=== PATIENT | male | born 1980 | race Caucasian/White ===

== ENCOUNTER 2016-11-17 22:12 | Emergency (ER) | payer OTHER ==
--- NOTE | 2016-11-18 | ED ORDER SUMMARY ---
..... Patient: GHADA AMIN OrderSheet [facility] VisitID: [id number] [place] [address] 36y, M Registration Date/Time: 11/17/2016 ORDER SHEET Weight: 99.7 kg (stated) Allergies: No Known Drug Allergy GENERAL ORDERS: Knee 4V Right Urgent (23:01 11/17/2016 Constance Mooney) (Ack 23:02 AMcQuoid ER Tech1) (23:43 RFay) Ice (23:01 11/17/2016 Constance Mooney) (Ack 23:02 AMcQuoid ER Tech1) (23:07 HSoule) MEDICATION ORDERS: Flwntxv-Lfqbwk-Qmhkp Pertussis IM 0.5 mL (NOW, per protocol) (23:56 11/17/2016 Constance Mooney) (Ack 23:57 HSoule) (0:04 HSoule) IV FLUIDS: ORDER SHEET NOTES: [Electronically signed by Yesenia Jin (00:21 11/18/2016)] [Electronically signed by Jorge Weber Dr. (11:34 11/22/2016)] [Electronically locked/signed by Yesenia Jin (00:11/18/2016)]
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
--- NOTE | 2016-11-18 | ED ORDER SUMMARY ---
..... Patient: GHADA AMIN OrderSheet [facility] VisitID: [id number] [place] [address] 36y, M Registration Date/Time: 11/17/2016 ORDER SHEET Weight: 99.7 kg (stated) Allergies: No Known Drug Allergy GENERAL ORDERS: Knee 4V Right Urgent (23:01 11/17/2016 Constance Mooney) (Ack 23:02 AMcQuoid ER Tech1) (23:43 RFay) Ice (23:01 11/17/2016 Constance Mooney) (Ack 23:02 AMcQuoid ER Tech1) (23:07 HSoule) MEDICATION ORDERS: Eibbbzi-Thqoqa-Dwkfy Pertussis IM 0.5 mL (NOW, per protocol) (23:56 11/17/2016 Constance Mooney) (Ack 23:57 HSoule) (0:04 HSoule) IV FLUIDS: ORDER SHEET NOTES: [Electronically signed by Yesenia Jin (00:21 11/18/2016)] [Electronically signed by Jorge Weber Dr. (11:34 11/22/2016)] [Electronically locked/signed by Yesenia Jin (00:11/18/2016)]
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
--- NOTE | 2016-11-18 00:23 | DIAGNOSTIC IMAGING REPORT ---
PROCEDURE: XR KNEE 4 VIEWS - RIGHT INDICATION: TRAUMA/INJURY TECHNIQUE: Four views. COMPARISON: None. FINDINGS: Bipartite patella. No fracture or dislocation. Normal joint spaces. No joint effusion. IMPRESSION: 1. Normal right knee.
--- NOTE | 2016-11-22 11:34 | ED MED RECONCILIATION SUMMARY ---
Patient: GHADA AMIN Medication Reconciliation Report [facility]erg[facility] VisitID: [id number] [address] [place] [address] 36y, M Registration Date/Time: 11/17/2016 Weight: 99.7 kg Height/Length: 71 in. BMI: 30.7 ALLERGIES: No Known Drug Allergy The patient's Home Medications are listed below: NONE. The source(s) of the original Home Medication information: patient The following Medications were given to the patient in the Emergency Department: JLLGDNN-QRHQDG-VBZSW PERTUSSIS [IM] IM 0.5 mL, administered: 11/18/2016 12:04:00 AM The following Medications were prescribed to the patient: Acetaminophen (available over the counter): take according to label instructions. -- Jorge Weber Dr. [place] (available over the counter): take according to label instructions. -- Jorge Weber Dr.
--- NOTE | 2016-11-22 11:34 | ED MAR SUMMARY ---
..... Medication Administration Record [address] [place] [address] Patient: GHADA AMIN Visit ID: [id number] 36y, M Weight: 99.7 kg Height/Length: 71 in BMI: 30.7 ALLERGIES: No Known Drug Allergy Given 00:04 11/18/2016 Yesenia Jin, Medication Administered: VAMKHNN-XSPUJX-NUTTO PERTUSSIS [IM], Dose: 0.5 mL IM. Medication Ordered: Brsiqmp-Qaelyu-Kkrqx Pertussis IM 0.5 mL (NOW, per protocol).
--- NOTE | 2016-11-22 11:34 | ED MED RECONCILIATION SUMMARY ---
Patient: GHADA AMIN Medication Reconciliation Report [facility] VisitID: [id number] [address] [place] [address] 36y, M Registration Date/Time: 11/17/2016 Weight: 99.7 kg Height/Length: 71 in. BMI: 30.7 ALLERGIES: No Known Drug Allergy The patient's Home Medications are listed below: NONE. The source(s) of the original Home Medication information: patient The following Medications were given to the patient in the Emergency Department: FIFZSGT-JPRXNW-ETPFZ PERTUSSIS [IM] IM 0.5 mL, administered: 11/18/2016 12:04:00 AM The following Medications were prescribed to the patient: Acetaminophen (available over the counter): take according to label instructions. -- Jorge Weber Dr. [place] (available over the counter): take according to label instructions. -- Jorge Weber Dr.
--- NOTE | 2016-11-22 11:34 | ED DISCHARGE INSTRUCTIONS ---
Patient: GHADA AMIN General Instructions [facility] VisitID: [id number] [place] [address] 36y, M Registration Date/Time: 11/17/2016 11/17/2016 23:22 BP: 100/60. HR: 90. RR: 20. O2 saturation: 95%. Blood pressure normal. Oxygen saturation normal. Multiple superficial abrasions to the right ankle and left knee. Sprain of the right medial collateral ligament. need for tetanus update. INSTRUCTIONS Warnings: GENERAL WARNINGS: Return or contact your physician immediately if your condition worsens or changes unexpectedly, if not improving as expected, or if other problems arise. Specifically return if pain, vomiting, bleeding, breathing difficulty or fever. Your Current Medications: CONTINUE TAKING THE FOLLOWING MEDICATIONS: None*. OTC Medications: Acetaminophen (available over the counter): take according to label instructions. Motrin (available over the counter): take according to label instructions. Follow-up: Return to the emergency department as needed. Follow up with your doctor in three days. Reason for referral: recheck today's concerns. Summary of care provided to patient via paper. Screening today revealed the patient's blood pressure to be in the normal range. The patient should follow up with a primary care provider for blood pressure management. Understanding of the discharge instructions verbalized by patient. ADDITIONAL INFORMATION Abrasions Abrasions are skin scrapes. Their treatment depends on how large and deep the abrasion is. Home Care: If you were given a bandage, change it once a day. If your bandage sticks to the wound, soak it in warm water until it loosens. Wash the area with soap and water to remove all the cream/ointment. You may do this in a sink, under a tub faucet or shower. Rinse off the soap and pat dry with a clean towel. Reapply cream/ointment according to your doctor's instructions. This will prevent infection and help prevent the bandage from sticking. Cover the wound with a fresh non-stick bandage (Telfa). Repeat steps 1 to 4 daily, or as directed by your doctor. If the bandage becomes wet or dirty, change it as soon as possible. You may use acetaminophen (Tylenol) or ibuprofen (Motrin, Advil) to control pain, unless another pain medicine was prescribed. [ NOTE : If you have chronic liver or kidney disease or ever had a stomach ulcer or GI bleeding, talk with your doctor before using these medicines.] Do not use ibuprofen in children under six months of age. Follow Up with your physician or this facility as directed by our staff. Most skin wounds heal within ten days. However, an infection may occur despite proper treatment. Therefore, look for the early signs of infection listed below. Get Prompt Medical Attention if any of the following occur: Increasing pain in the wound Increasing redness or swelling Pus coming from the wound Fever of 100.4F (38C) or higher, or as directed by your healthcare provider Sprain, Knee A sprain is an injury to the ligaments or capsule that holds a joint together. There are no broken bones. Most sprains take three to six weeks to heal. If the ligament is completely torn (severe sprain), it can take months to recover from. Most knee sprains are treated with a splint, knee immobilizer or elastic wrap for support. Severe sprains may require surgery. Home care The following guidelines will help you care for your injury at home: Stay off the injured leg as much as possible until you can walk on it without pain. If you have a lot of pain with walking, crutches or a walker may be prescribed. (These can be rented or purchased at many pharmacies and surgical or orthopedic supply stores). Follow your doctor's advice regarding when to begin bearing weight on that leg. Keep your leg elevated to reduce pain and swelling. When sleeping, place a pillow under the injured leg. When sitting, support the injured leg so it is level with your waist. This is very important during the first 48 hours. Apply an ice pack (ice cubes in a plastic bag, wrapped in a towel) over the injured area for 20 minutes every 12 hours the first day. You can place the ice pack directly over the splint. If a Velcro knee immobilizer was applied, you can open this to apply the ice pack directly to the knee. Continue with ice packs 34 times a day for the next two days, then as needed for the relief of pain and swelling. You may use acetaminophen or ibuprofen to control pain, unless another pain medicine was prescribed. If you have chronic liver or kidney disease or ever had a stomach ulcer or GI bleeding, talk with your doctor before using these medicines. If you were given a splint, keep it completely dry at all times. Bathe with your splint out of the water, protected with a large plastic bag, rubber-banded at the top end. If a fiberglass splint gets wet, you can dry it with a hair-dryer. If you have a Velcro knee immobilizer, you can remove this to bathe, unless told otherwise. Follow-up care Follow up with your doctor as advised. Any X-rays you had today dont show any broken bones, breaks, or fractures. Sometimes fractures dont show up on the first X-ray. Bruises and sprains can sometimes hurt as much as a fracture. These injuries can take time to heal completely. If your symptoms dont improve or they get worse, talk with your doctor. You may need a repeat X-ray. When to seek medical care Get prompt medical attention if any of the following occur: The plaster cast or splint becomes wet or soft The fiberglass cast or splint remains wet for more than 24 hours Pain or swelling increases Toes become cold, blue, numb or tingly You have been given the following additional information: Abrasion Knee Sprain (Electronically signed by Jorge Weber Dr. 11/22/2016 11:34)
--- NOTE | 2016-11-22 11:34 | ED MAR SUMMARY ---
..... Medication Administration Record [address] [place] [address] Patient: GHADA AMIN Visit ID: [id number], M Weight: 99.7 kg Height/Length: 71 in BMI: 30.7 ALLERGIES: No Known Drug Allergy Given 00:04 11/18/2016 Yesenia Jin, Medication Administered: [id number] PERTUSSIS [IM], Dose: 0.5 mL IM. Medication Ordered: Xrllqyw-Ooldae-Iqoet Pertussis IM 0.5 mL (NOW, per protocol).
== END 2016-11-18 00:05 | disposition home or self-care (01) ==
LOC: ED SRH 22:12
DX: S83.411A Sprain of medial collateral ligament of right knee, initial encounter (principal); S80.212A Abrasion, left knee, initial encounter; S90.511A Abrasion, right ankle, initial encounter; V86.59XA Driver of other special all-terrain or other off-road motor vehicle injured in nontraffic accident, initial encounter; Y93.39 Activity, other involving climbing, rappelling and jumping off; Y92.009 Unspecified place in unspecified non-institutional (private) residence as the place of occurrence of the external cause; Y99.8 Other external cause status; Z23 Encounter for immunization; F17.210 Nicotine dependence, cigarettes, uncomplicated